=== PATIENT | male | born 1980 | race Caucasian/White ===

== ENCOUNTER 2016-11-23 20:27 | Inpatient (IN) | payer MEDICAID, OTHER ==
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
[2016-11-23] MEDS ORDERED: NICOTINE 21MG/24HR PATCH TRANSDERM STA (21:16)
[2016-11-24] MEDS ORDERED: MAGNESIUM HYDROXIDE 2,400 MG/10 ML CUP PO PRN (03:19)
[2016-11-24] MEDS ORDERED: MAG HYDROX/AL HYDROX/SIMETH 30 ML CUP PO PRN (03:19)
[2016-11-24] MEDS ORDERED: HALOPERIDOL 5 MG TAB PO STA (08:12)
[2016-11-24] MEDS ORDERED: HALOPERIDOL LACTATE 5 MG/ML 1 ML VIAL IM PRN (08:24)
[2016-11-24] MEDS ORDERED: WATER FOR INJECTION, STERILE 10 ML IV ONE ×2 (08:25→23:33)
[2016-11-24] MEDS: ZIPRASIDONE 20 MG VIAL IM PRN ×2 (08:33→23:37)
[2016-11-24] MEDS: LORazepam 1 MG TAB PO PRN ×2 (09:17→18:37)
[2016-11-24] MEDS ORDERED: HALOPERIDOL LACTATE 5 MG/ML 1 ML VIAL IM STA (09:40)
[2016-11-24] MEDS ORDERED: LORazepam 2 MG/ML SYRINGE IM STA (09:41)
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
--- NOTE | 2016-11-24 16:48 | CONS ---
DATE OF CONSULTATION: CHIEF COMPLAINT: Manic-depressive. HISTORY OF PRESENT ILLNESS: This gentleman was admitted to the psych floor and I was asked to see the patient on medical consult. However, he is not available at this time and will be assessed later.
[2016-11-24] MEDS: LORazepam 2 MG/ML SYRINGE IM PRN (23:37)
[2016-11-25] MEDS: LORazepam 1 MG TAB PO PRN ×2 (08:35→18:18)
[2016-11-25 08:44] LABS: Basophils # (A) 0.1 k/uL (0-0.2); Basophils % (A) 0 %; CH 31.1; CHCM 34.1; Eosinophils # (A) 0.4 k/uL (0-0.7); Eosinophils % (A) 4 %; HGB 16.3 gm/dL (13.0-17.5); Luc # (Auto) 0.28; Luc % (Auto) 3; Lymphocytes % (A) 18 %; MCH 30.4 pg (25.0-35.0); MCHC 33.2 g/dL (31.0-37.0); MCV 91.8 fL (80.0-100.0); Mean Platelet Volume 6.5; Monocytes # (A) 0.7 k/uL (0-1.0); Monocytes % (A) 6 %; Neutrophils % (A) 70 %; RBC 5.34 m/uL (4.30-5.90); RDW 14.4 % (11.5-15.5); WBC 11.4 k/uL (3.8-10.6); WBC (Perox) 11.32
[2016-11-25 09:07] LABS: ALT 34 U/L (21-72); AST 33 U/L (17-59); Alkaline Phosphatase 71 U/L (38-126); Anion Gap 10 mmol/L; Blood Urea Nitrogen 8 mg/dL (9-20); Calcium 9.6 mg/dL (8.4-10.2); Carbon Dioxide 25 mmol/L (22-30); Chloride 108 mmol/L (98-107); Glucose 99 mg/dL (74-99); Non-African American GFR(MDRD) >60 (>60 ml/min/1.73 sqM); Potassium 4.7 mmol/L (3.5-5.1); Sodium 143 mmol/L (137-145); Total Bilirubin 0.6 mg/dL (0.2-1.3); Total Protein 7.5 g/dL (6.3-8.2)
--- NOTE | 2016-11-25 09:48 | P.PN ---
Progress Note - Text Interval history: The patient was seen in library . He endorses mixed delusion : persecutory and somatic delusion ,disheveled ,body odor ,labile ,easy agitated PER NURSING STAFF: Patient was in restrains yesterday morning and did require multiple PRN ,please see MAR ,last Evening he took his oral Abilify but did require IM Ativan and Geodon at 2300 Mental status exam: The patient is alert ,unkept,disheveled Eye contact is intermittent. He is less agitated today. He describes feelings of persecution and paranoia. He feels that staff are doing things to him . Insight and judgment are poor. Obviously continues to experience acute symptoms of psychosis inhibiting appropriate psychosocial functioning. Plan: The patient will continue on his current medication we will monitor his compliance. Encourage him to take care of his ADLS The patient requires continued psychiatric hospitalization. Vital signs reviewed.
[2016-11-25] MEDS: ACETAMINOPHEN TAB 325 MG TAB PO PRN (10:06)
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
[2016-11-25] MEDS ORDERED: WATER FOR INJECTION, STERILE 10 ML IV ONE (12:30)
[2016-11-25] MEDS: ZIPRASIDONE 20 MG VIAL IM PRN (12:47)
[2016-11-26] MEDS: LORazepam 1 MG TAB PO PRN ×3 (08:26→22:39)
[2016-11-26] MEDS: NICOTINE 21MG/24HR PATCH TRANSDERM SCH (10:03)
[2016-11-26] MEDS ORDERED: ZIPRASIDONE 20 MG CAP PO STA (10:12)
[2016-11-26] MEDS ORDERED: ZIPRASIDONE 20 MG CAP PO PRN (12:44)
--- NOTE | 2016-11-26 12:51 | P.PN ---
Progress Note - Text Interval history: The patient was seen in library . He endorses mixed delusion : persecutory and somatic delusion ,disheveled ,unkept ,less irritable than yesterday ,he reports trouble falling asleep and asked if can use PRN oral Geodon PER NURSING STAFF: He did require PRN ATIVAN last night as he was pacing and irritable Mental status exam: The patient is alert ,unkept,disheveled Eye contact is intermittent. He is less agitated today. He describes feelings of persecution and paranoia. He feels that staff are doing things to him . Insight and judgment are poor. Obviously continues to experience acute symptoms of psychosis inhibiting appropriate psychosocial functioning. Plan: Increase Abilify to 30 mg daily ,we will consider Abilify Maintaina after court as he has extensive history of poor compliance, we will monitor his compliance. Encourage him to take care of his ADLS The patient requires continued psychiatric hospitalization. Vital signs reviewed.
[2016-11-26] MEDS: ACETAMINOPHEN TAB 325 MG TAB PO PRN (13:47)
[2016-11-26] MEDS: ARIPiprazole 15 MG TAB PO SCH (20:19)
[2016-11-27] MEDS: NICOTINE 21MG/24HR PATCH TRANSDERM SCH (08:35)
[2016-11-27] MEDS: LORazepam 1 MG TAB PO PRN ×3 (08:36→22:42)
--- NOTE | 2016-11-27 10:41 | P.PN ---
Progress Note - Text Interval history: The patient was seen in the office ,less paranoia ,still evasive ,guarded ,disorganized speech ,stated that his mother visited him on weekend and patient asked her if he can live with her after discharge "She told me that she has to check with her boyfriend ,I do not like staying in half-way ",,patient endorses persecutory delusion , guilt feeling "I WAS DISRESPECTFUL TO MY GRANDMOTHER",reluctant to elaborate more about this PER NURSING STAFF: No PRN Geodon for last 24 hours ,received PRN Ativan last night for anxiety,not participating in any group Mental status exam: The patient is alert ,unkept,disheveled Eye contact is intermittent. He is less agitated today. He describes feelings of persecution and paranoia. ,flat affect ,halting and blocking ,denies any hallucination but seems responding to internal stimuli,denies any current suicidal or homicidal ideation,. Insight and judgment are poor. Obviously continues to experience acute symptoms of psychosis inhibiting appropriate psychosocial functioning. Plan: Abilify to 30 mg daily ,we will consider Abilify Maintaina after court as he has history of poor compliance, we will monitor his compliance. Encourage him to take care of his ADLS and to participate in groups The patient requires continued psychiatric hospitalization. Vital signs reviewed.
[2016-11-27] MEDS: ACETAMINOPHEN TAB 325 MG TAB PO PRN ×2 (11:51→17:57)
[2016-11-27] MEDS: ARIPiprazole 15 MG TAB PO SCH (20:18)
[2016-11-28] MEDS: ACETAMINOPHEN TAB 325 MG TAB PO PRN ×3 (00:28→16:17)
[2016-11-28] MEDS: NICOTINE 21MG/24HR PATCH TRANSDERM SCH (08:28)
[2016-11-28] MEDS: LORazepam 1 MG TAB PO PRN (08:32)
[2016-11-28] MEDS: hydrOXYzine PAMOATE 25 MG CAP PO PRN ×3 (12:31→21:56)
--- NOTE | 2016-11-28 13:00 | P.PN ---
Progress Note - Text Interval history: The patient was seen this morning and later on after he met with his admitted attorneys :patient is confused ,having difficulty to comprehend court process ,reports poor sleep , having high anxiety "CAN YOU CHANGE MY ATIVAN TO EVERY 4 HOURS INSTEAD OF 8 ",denies any hallucination but still having persecutory delusion saying "ARE YOU TRYING TO SEND ME TO CARE HOME ,I DID LOT OF MISTAKES" Patient stated that his mother will allow him to stay with her if he will accept that she will be his guardian PER NURSING STAFF: Has been requesting Ativan 2-3 times daily for anxiety ,no participation in milieu or therapeutic groups Mental status exam: The patient is alert ,unkept,disheveled ,body odor Eye contact is intermittent. He is less agitated today. He describes feelings of persecution and paranoia. He feels that I am trying to send him to assisted ,very concrete and not able to comprehend . Insight and judgment are poor. Obviously continues to experience acute symptoms of psychosis inhibiting appropriate psychosocial functioning. Plan: Patient met with admitted attorneys and signed deferral ,we will start Abilify Maintaina ,decrease oral Abilify to 20 mg ,discontinue Ativan ,start Viataril for anxiety ,Remeron for sleep ,SW to meet with patient mother Encourage him to take care of his ADLS The patient requires continued psychiatric hospitalization. Vital signs reviewed.
[2016-11-28] MEDS ORDERED: ARIPiprazole 400 MG VIAL IM ONE (13:01)
[2016-11-28 13:33] LABS: Appearance,Urine Clear (Clear); Bilirubin,Urine Negative (Negative); Glucose,Urine (UA) Negative (Negative); Ketones,Urine Negative (Negative); Leukocyte Esterase,Urine Negative (Negative); Nitrite,Urine Negative (Negative); Protein,Urine Trace (Negative); Specific Gravity,Urine 1.002 (1.001-1.035); UA Billing (MACRO vs. MICRO) CHEM; Urobilinogen,Urine <2.0 mg/dL (<2.0)
[2016-11-28 14:08] LABS: Basophils # (A) 0.1 k/uL (0-0.2); Basophils % (A) 1 %; CH 31.2; CHCM 33.4; Eosinophils # (A) 0.2 k/uL (0-0.7); Eosinophils % (A) 1 %; HCT 49.5 % (39.0-53.0); HDW 2.27; HGB 16.3 gm/dL (13.0-17.5); Luc # (Auto) 0.21; Luc % (Auto) 2; Lymphocytes # (A) 1.2 k/uL (1.0-4.8); Lymphocytes % (A) 10 %; MCH 30.9 pg (25.0-35.0); MCV 93.8 fL (80.0-100.0); Mean Platelet Volume 6.9; Monocytes # (A) 0.6 k/uL (0-1.0); Monocytes % (A) 5 %; Neutrophils # (A) 9.8 k/uL (1.3-7.7); Neutrophils % (A) 81 %; RBC 5.28 m/uL (4.30-5.90); RDW 14.1 % (11.5-15.5); WBC 12.1 k/uL (3.8-10.6); WBC (Perox) 11.63
[2016-11-28 14:29] LABS: Potassium 5.1 mmol/L (3.5-5.1)
[2016-11-28] MEDS ORDERED: MIRTAZAPINE 15 MG TAB PO SCH (21:00)
[2016-11-28] MEDS ORDERED: ARIPiprazole 15 MG TAB PO SCH (21:00)
[2016-11-28] MEDS ORDERED: WATER FOR INJECTION, STERILE 10 ML IV ONE (22:00)
[2016-11-28] MEDS: LORazepam 2 MG/ML SYRINGE IM PRN (22:16)
[2016-11-28] MEDS: ZIPRASIDONE 20 MG VIAL IM PRN (22:17)
[2016-11-29] MEDS: hydrOXYzine PAMOATE 25 MG CAP PO PRN ×3 (10:12→20:58)
[2016-11-29] MEDS: NICOTINE 21MG/24HR PATCH TRANSDERM SCH (10:13)
[2016-11-29] MEDS: ACETAMINOPHEN TAB 325 MG TAB PO PRN (12:57)
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
[2016-11-29] MEDS: traZODone HCL 50 MG TAB PO SCH (20:58)
[2016-11-29] MEDS ORDERED: traZODone HCL 100 MG TAB PO SCH (21:00)
[2016-11-29] MEDS ORDERED: WATER FOR INJECTION, STERILE 10 ML IV ONE (22:57)
[2016-11-29] MEDS: ZIPRASIDONE 20 MG VIAL IM PRN (22:57)
[2016-11-29] MEDS: LORazepam 2 MG/ML SYRINGE IM PRN (22:58)
[2016-11-30] MEDS: NICOTINE 21MG/24HR PATCH TRANSDERM SCH (08:23)
[2016-11-30] MEDS: ARIPiprazole 15 MG TAB PO SCH (08:23)
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
[2016-11-30] MEDS ORDERED: ARIPiprazole 15 MG TAB PO SCH (09:00)
[2016-11-30] MEDS: hydrOXYzine PAMOATE 25 MG CAP PO PRN (09:13)
[2016-11-30] MEDS ORDERED: ZIPRASIDONE 20 MG VIAL IM ONE (11:03)
[2016-11-30] MEDS ORDERED: WATER FOR INJECTION, STERILE 10 ML IV ONE (11:03)
[2016-11-30] MEDS: LORazepam 2 MG/ML SYRINGE IM PRN (11:05)
[2016-11-30] MEDS: ZIPRASIDONE 20 MG VIAL IM PRN (11:05)
[2016-11-30] MEDS: clonazePAM 0.5 MG TAB PO SCH ×2 (15:49→20:09)
[2016-11-30] MEDS ORDERED: INFLUENZA VACCINE (3YR+) 60 MCG/0.5 ML SYRINGE IM ONE (17:38)
[2016-11-30] MEDS: traZODone HCL 50 MG TAB PO SCH (20:10)
--- NOTE | 2016-11-30 21:42 | PN ---
DATE OF SERVICE: 11/30/2016 CHIEF COMPLAINT: "Elevated white count, platelet count and kidney function" HISTORY OF PRESENT ILLNESS: This gentleman is being seen because it was reported that his platelet count and white cell counts were abnormal. He has no signs or symptoms to suggest any fever, chills, bleeding disorders, etc. He has not been on any medications that would affect his bone marrow such as steroids. In May of 2016 his white count was 12,600 and it is 12,000 now. He has one on the floor that is 11,400. Platelets are 495,000, which is perfectly normal. He has another platelet count of 470,000. He has no fever, chills, rashes, ecchymoses, temperature, etc. These numbers are well within expected normal limits and are unchanged from studies that he had done last year.
[2016-12-01] MEDS: NICOTINE 21MG/24HR PATCH TRANSDERM SCH (08:29)
[2016-12-01] MEDS: ARIPiprazole 15 MG TAB PO SCH (08:29)
[2016-12-01] MEDS: clonazePAM 0.5 MG TAB PO SCH (08:29)
--- NOTE | 2016-12-01 12:17 | P.PN ---
Progress Note - Text Interval history: I reviewed records and I saw patient :patient reports feeling lost ,indecisive ,lot of guilt feeling ,fear of being burden when his mother "She is on lot of medications ",confused ,seems preoccupied ,lot of rumination on his past SA "I do think that I need to go to Rehab. ,"patient could not elaborate about this ,endorses persistent thoughts about "Growing Mushrooms at age 28 "that cause marked anxiety and distress,concrete thinking PER NURSING STAFF: Slept with Trazodone ,last PRN IM was yesterday noon ,minimal participation in groups ,difficulty to comprehend at times ,no aggressive behavior Mental status exam: The patient is alert ,ADLs slightly better Eye contact is intermittent. He is calm and cooperative,. He describes feelings of persecution and paranoia. He reports depressive symptoms:feeling overwhelmed , guilt feeling ,worthless feeling ,very concrete and not able to comprehend .He denies any suicidal or homicidal ideation,denies any hallucination,denies any side-effects from psychotropic medication Insight and judgment are poor. Obviously continues to experience acute symptoms of psychosis inhibiting appropriate psychosocial functioning. Plan: 1) Patient received ABILIFY MAINTAINA on 11/28 ,continue oral Abilify 30 mg for 2 weeks 2) Add low dose of citalopram for his anxiety and depression 3) Change regular Klonopin to PRN as patient looks sedated 4) Continue Trazodone for sleep ,continue monitoring his thought process
[2016-12-01] MEDS: hydrOXYzine PAMOATE 25 MG CAP PO PRN (13:27)
[2016-12-01] MEDS: clonazePAM 0.5 MG TAB PO PRN ×2 (14:23→21:17)
[2016-12-01] MEDS: ACETAMINOPHEN TAB 325 MG TAB PO PRN (15:53)
[2016-12-01] MEDS: traZODone HCL 100 MG TAB PO SCH (21:15)
[2016-12-02] MEDS: ARIPiprazole 15 MG TAB PO SCH (08:12)
[2016-12-02] MEDS: NICOTINE 21MG/24HR PATCH TRANSDERM SCH (08:12)
[2016-12-02] MEDS: CITALOPRAM HYDROBROMIDE 20 MG TAB PO SCH (08:13)
[2016-12-02] MEDS: clonazePAM 0.5 MG TAB PO PRN ×2 (08:14→16:20)
[2016-12-02] MEDS: ACETAMINOPHEN TAB 325 MG TAB PO PRN (11:16)
[2016-12-02] MEDS: hydrOXYzine PAMOATE 25 MG CAP PO PRN (13:42)
--- NOTE | 2016-12-02 16:59 | P.PN ---
Progress Note - Text SUBJECTIVE: I reviewed the medical record and interviewed Mr. Cedeno. He is a 36-year-old male with history of a schizophrenia. He complained of feeling guilty, worthless and helpless. He perseverated on themes of worthlessness; at one point calling himself "a piece of shit." He feels that he is destroyed his life from "doing drugs" alleging that he began smoking marijuana in the sixth grade. He gave an ambivalent response to questions about the benefits of her current psychotropic medications. At one point stating that "medications are of no help" and later stating that he came to Hospital because he stopped taking medication 6 months ago. He denied side effects to current medications. OBJECTIVE: He presented as a disheveled appearing 36-year-old male who was pleasant on approach. He insisted that we keep the door to the examination room open and would not begin the interview until I propped the door open with a chair. He maintained eye contact and appeared to attend to the interview. He had no distinguishing features or prominent physical abnormalities. He had a flat facial expression. He was alert and oriented to person, place and time. He showed marked psychomotor retardation but no abnormal involuntary movements. His speech was spontaneous with decreased rate , rhythm and volume. His affect was flat and he was guarded and suspicious. He denied suicidal ideation or wishes. He denied homicidal ideation. He expressed depressive cognitions such as helplessness, hopelessness and worthlessness. He ruminated on themes of worthlessness and helplessness. He did not express ideas reference or clear organize paranoid delusional thinking. His thinking was concrete and associations were not coherent or logical. He did not demonstrate blocking. He denied thought insertion, thought broadcasting or thought control. He denied hallucinations did not appear to be responding to internal stimuli. ASSESSMENT: He is severely mentally ill and is shown a modest response to treatment. He is denying side effects to current psychotropic medications. PLAN: Continue Abilify 30 mg daily, trazodone 200 mg at bedtime and Celexa 20 mg daily. Continue clonazepam 0.5 mg by mouth 3 times a day when necessary for anxiety as well as Vistaril 25 mg by mouth every 4 hours for anxiety. Encourage participation in therapeutic groups and activities. Review clinical status and response to treatment on a daily basis.
[2016-12-02] MEDS: traZODone HCL 100 MG TAB PO SCH (20:16)
[2016-12-03] MEDS: clonazePAM 0.5 MG TAB PO PRN ×2 (08:27→15:03)
[2016-12-03] MEDS: ARIPiprazole 15 MG TAB PO SCH (08:27)
[2016-12-03] MEDS: NICOTINE 21MG/24HR PATCH TRANSDERM SCH (08:27)
[2016-12-03] MEDS: CITALOPRAM HYDROBROMIDE 20 MG TAB PO SCH (08:28)
--- NOTE | 2016-12-03 15:53 | P.PN ---
Progress Note - Text SUBJECTIVE: I reviewed the medical record and interviewed Mr. Cedeno. He described an unusual fixed belief. In response to my question about how he is currently feeling he replied "I have messed up the world and I can't make it better. I ate mushrooma . I was using drugs. I had learned thru the games that I am contagious. I didn't know the whole time otherwise I wouldn't have tried it. ... I cannot go back I can be a better person every moment. In response to my question about what he may do to ease his distress, he replied " I like to color white but I know that's not an option." He denied side effects to current medications. OBJECTIVE: He presented as a disheveled appearing 36-year-old male who was pleasant on approach. He insisted that we keep the door to the examination room open and would not begin the interview until I propped the door open with a chair. He maintained eye contact and appeared to attend to the interview. He had no distinguishing features or prominent physical abnormalities. He had a flat facial expression. He was alert and oriented to person, place and time. He showed marked psychomotor retardation but no abnormal involuntary movements. His speech was spontaneous with decreased rate , rhythm and volume. His affect was flat. He was guarded and suspicious. He repeatedly denied suicidal ideation or wishes. He denied homicidal ideation. He expressed depressive cognitions such as helplessness, hopelessness and worthlessness. He ruminated on themes of worthlessness and helplessness. He described a paranoid, grandiose and disjointed delusional belief. His thinking was concrete and associations were not coherent or logical. He did not demonstrate blocking. He denied thought insertion, thought broadcasting or thought control. He denied hallucinations did not appear to be responding to internal stimuli. ASSESSMENT: He is severely mentally ill and is shown a modest response to treatment. He is denying side effects to current psychotropic medications. PLAN: Continue Abilify 30 mg daily, trazodone 200 mg at bedtime and Celexa 20 mg daily. Continue clonazepam 0.5 mg by mouth 3 times a day when necessary for anxiety as well as Vistaril 25 mg by mouth every 4 hours for anxiety. Encourage participation in therapeutic groups and activities. Review clinical status and response to treatment on a daily basis.
[2016-12-03] MEDS: traZODone HCL 100 MG TAB PO SCH (21:15)
[2016-12-03] MEDS: hydrOXYzine PAMOATE 25 MG CAP PO PRN (23:10)
[2016-12-04] MEDS: ACETAMINOPHEN TAB 325 MG TAB PO PRN (04:54)
[2016-12-04] MEDS: clonazePAM 0.5 MG TAB PO PRN (04:58)
[2016-12-04] MEDS: ARIPiprazole 15 MG TAB PO SCH (08:11)
[2016-12-04] MEDS: NICOTINE 21MG/24HR PATCH TRANSDERM SCH (08:11)
[2016-12-04] MEDS: CITALOPRAM HYDROBROMIDE 20 MG TAB PO SCH (08:12)
[2016-12-04] MEDS: hydrOXYzine PAMOATE 25 MG CAP PO PRN ×2 (08:12→20:15)
[2016-12-04] MEDS: GABAPENTIN 100 MG CAP PO SCH ×3 (08:40→20:13)
--- NOTE | 2016-12-04 08:47 | P.PN ---
Progress Note - Text SUBJECTIVE: He complained of feeling guilty, worthless and helpless. He perseverated on themes of worthlessness and his extensive history of drugs use;reports that he is up since 5 AM "Because they came to my room to check on me ",reports lot of paranoia and suspicious feeling ,denies any hallucination but seems having difficulty to focus or to comprehend ,asked if "CAN YOU CHANGE KLONOPIN TO XANAX ,IT WORKED FOR ME" PER NURSING STAFF: Patient had PRN Vistaril and Klonopin at 5 AM ,no aggressive behavior OBJECTIVE: Patient came to my office asked to talk to me ,hygiene is better ,no body odor He maintained eye contact and appeared to attend to the interview. . He showed marked psychomotor retardation but no abnormal involuntary movements. His speech was spontaneous with decreased rate, rhythm and volume. His affect was flat and he was guarded and suspicious. He denied suicidal ideation or wishes. He denied homicidal ideation. He expressed depressive cognitions such as helplessness, hopelessness and worthlessness. He ruminated on themes of worthlessness and helplessness. He did not express clear organize paranoid delusional thinking. His thinking was concrete and associations were not coherent or logical. Patient is having difficulty to express his feeling and his thoughts ASSESSMENT: Patient is still paranoia ,concrete ,reports high anxiety and depressive symptoms ,asking for benzodiazepine ,limited insight PLAN: 1) Discontinue Klonopin ,continue Vistaril PRN ,add Neurontin for anxiety 2) Increase Celexa 30 mg ,add low dose of Prolixin to eliminate paranoia 3) Continue Abilify and Trazodone ,same dose 4). Encourage participation in therapeutic groups and activities. Review clinical status and response to treatment on a daily basis.
[2016-12-04] MEDS ORDERED: CITALOPRAM HYDROBROMIDE 10 MG TAB PO SCH (09:00)
[2016-12-04] MEDS: traZODone HCL 100 MG TAB PO SCH (20:13)
[2016-12-05] MEDS: NICOTINE 21MG/24HR PATCH TRANSDERM SCH (08:53)
[2016-12-05] MEDS: GABAPENTIN 100 MG CAP PO SCH ×3 (08:53→21:03)
[2016-12-05] MEDS: CITALOPRAM HYDROBROMIDE 10 MG TAB PO SCH (08:53)
[2016-12-05] MEDS: ARIPiprazole 15 MG TAB PO SCH (08:54)
--- NOTE | 2016-12-05 09:52 | P.PN ---
Progress Note - Text SUBJECTIVE:Met with patient and [facility] liaison: Patient talked about postplan discharge and living with his mother who DX with Bipolar and Schizophrenia in addition she has been on Opium and Valium for chronic pain ,patient stated that he will be compliant with ACT team and follow up with our recommendation ,stated that his future goal is to live in his own apartment and stay clean from any habit forming medications Patient is still ruminating about his past mistakes and his poor compliance with treatment Patient denies side-effects to his current medications OBJECTIVE: Patient was dressed in his clothing ,unkept ,hair is not combed ,poor grooming He maintained eye contact and appeared to attend to the interview. . He showed marked psychomotor retardation but no abnormal involuntary movements. His speech was spontaneous with decreased rate, rhythm and volume. His affect was flat . He denied suicidal ideation or wishes. He denied homicidal ideation. He expressed depressive cognitions such as worthlessness and guilt feeling. He did not express clear organize paranoid delusional thinking. His thinking was concrete and associations were not coherent or logical. PLAN: Continue current medications ,discussed referral to ACT team ,encourage groups participation ,most likely discharge tomorrow
[2016-12-05 11:17] VITALS: BMI 24.7
[2016-12-05] MEDS: traZODone HCL 100 MG TAB PO SCH (21:03)
[2016-12-06 07:04] VITALS: BP 155/74; PULSE 116; RESP 18; TEMP 98.2
[2016-12-06] MEDS: NICOTINE 21MG/24HR PATCH TRANSDERM SCH (08:54)
[2016-12-06] MEDS: CITALOPRAM HYDROBROMIDE 10 MG TAB PO SCH (08:55)
[2016-12-06] MEDS: GABAPENTIN 100 MG CAP PO SCH (08:55)
[2016-12-06] MEDS: ARIPiprazole 15 MG TAB PO SCH (08:55)
--- NOTE | 2016-12-06 09:48 | DS ---
DATE OF ADMISSION: 11/24/2016 DATE OF DISCHARGE: 12/06/2016 CONSULT PHYSICIAN: Yary. CONSULTING PROVIDER: Martin Gotti Consult reason for medical management. DISCHARGE DIAGNOSES: 1. Schizoaffective disorder, depressed episode. 2. Schizophrenia, disorganized type. 3. Polysubstance abuse and dependence, opium, benzodiazepine and cannabis. 4. History of hallucinogenic use, in remission. 5. 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 6. Extensive history of poor compliance with medication. Brief summary of the admission notes: The patient was admitted to the mental health unit from the emergency room on involuntary basis for delusion and psychosis. At the time of the admission, patient was severely agitated, very bizarre, delusional. He was refusing to talk to me and he got agitated to the point that he started hitting his head against the wall and he did require seclusion and restraint in addition to p.r.n. For complete history and physical exam, please refer to my dictation on November 24. Summary of the hospital course: Patient was originally admitted to the mental health unit on petition and clinical certificate. Patient was very resistant to most of psychotropic medication. We did pursue involuntary admission. Patient was complaining that he is allergic to most of antipsychotic medication, but he did agree to start Abilify and according to him, he did try to Risperdal, Seroquel, Thorazine, and they were not effective. Patient met with his personal injury attorney and he did defer and I switched him from oral Abilify to Abilify maintain and I continued the oral Abilify. Patient was requesting multiple p.r.n. between Geodon and Ativan and based on his extensive history of substance abuse, I discontinued the Ativan and he was given Vistaril p.r.n. for anxiety. Patient was ruminating a lot about growing mushroom in his grandmom backyard and I did add SSRI escitalopram. Patient was asking me to have some Xanax as he said, "I'm having very anxiety." He did agree to take Neurontin for anxiety and also to control his mood, especially he has tendency to be very restless. Throughout his hospitalization he was describing unusual fixed beliefs and ruminating about, "I have messed up the world and I cannot make it better. I was using drugs and I ate mushrooms and I had learned that I am contagious." Due to this delusion related to his depression, I did add low dose of Prolixin as he was already on Abilify 30 mg in the morning and he did receive the injection November 29 four hundred mg IM. I did encourage him to participate in therapeutic group and activity; for the last 5 days he was able to attend and participate in group but his answer usually is very disorganized, his thinking is very concrete. At times his association were not coherent or logical. [employer] met with patient's mother and mother's boyfriend to discuss postdischarge plans and they did agree to let the patient live with them; however, it seems that the mother has multiple medical problems between bipolar disorder, schizophrenia and chronic back pain and she has been on multiple medication, especially opium medication and Valium and we did discuss with them that she needs to keep all her medication in a safe place as the patient has extensive history of substance abuse. Family did feel comfortable regarding patient discharge. I had meeting prior to the discharge with the consultation liaison from [facility] and the patient we did discuss to refer the patient to ACT team to monitor the patient regarding his compliance with medication and help him to stay sober and clean from any drug use. The mental status examination at the time of the discharge: Patient presented as disheveled, 36-year-old main who was pleasant on approach. He maintained good eye contact and he appeared to attend to the interview. There is no abnormal movement. His affect is flat, stated mood anxious, he was alert, oriented to the person, place and time. There is psychomotor retardation. His speech was spontaneous with decreased rate and volume. He has still paranoia, but much better than 2 weeks ago. He denied any hallucination and he did not appear to be responding to internal stimuli. He denied any suicidal ideation or wish. He denied any homicidal ideation. He did express some depressive symptoms, especially a lot of guilt feelings about his drug use, but he denied hopeless or helpless feeling. He is still delusional beliefs that he is contagious or by growing mushroom 8 years ago it did affect a lot of people. His thinking is very concrete. His insight and judgment are slightly improving. There is no verbal or physical aggression observed the first 2 or 3 days of his admission. PLAN: 1. Patient will be discharged from the mental health unit today to return home. 2. Patient will follow up at [facility]. 3. Patient was instructed to abstain completely from any drug use, especially opium and benzodiazepine use. 4. I do recommend patient to be tested for his IQ in the outpatient setting . 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 Patient was given prescription for the following medication: 1. Abilify Maintena 400 mg is due on December 29. 2. Abilify 30 mg in the morning for the next 10 days. 3. Celexa 30 mg in the morning for depression and anxiety. 4. Neurontin 200 mg 3 times a day for anxiety and as mood stabilizer. 5. Trazodone 200 mg at bedtime for sleep. 6. Prolixin 2 mg at bedtime. 7. Also, he was given 2-week supply of nicotine patch for smoking cessation. The patient denied any hopeless feeling, denied any suicidal ideation. There is no eminent safety risk. Patient needs to seek outpatient counseling for substance abuse and mental health issue. Patient condition at the time of the discharge, stable.
== END 2016-12-06 12:16 | disposition home or self-care (01) | DRG 885 ==
LOC: EC 20:27 → 3MHU 11-24 00:13
PROVIDERS: ADMIT Psychiatry & Neurology Psychiatry; ATTEND Psychiatry & Neurology Psychiatry
PROC: 3E0234Z Introduction of Serum, Toxoid and Vaccine into Muscle, Percutaneous Approach (ICD-10-PCS; principal; 2016-11-30)
DX: F20.1 Disorganized schizophrenia (principal); Z78.1 Physical restraint status; E55.9 Vitamin D deficiency, unspecified; F19.20 Other psychoactive substance dependence, uncomplicated; F20.0 Paranoid schizophrenia; F10.21 Alcohol dependence, in remission; F43.10 Post-traumatic stress disorder, unspecified; F17.210 Nicotine dependence, cigarettes, uncomplicated; D72.829 Elevated white blood cell count, unspecified; T43.596A Underdosing of other antipsychotics and neuroleptics, initial encounter; G89.29 Other chronic pain; F16.21 Hallucinogen dependence, in remission; F41.9 Anxiety disorder, unspecified; M54.9 Dorsalgia, unspecified; K64.9 Unspecified hemorrhoids; G43.909 Migraine, unspecified, not intractable, without status migrainosus; Z73.6 Limitation of activities due to disability; Z87.81 Personal history of (healed) traumatic fracture; Z91.14 Patient's other noncompliance with medication regimen; Z23 Encounter for immunization; Z71.51 Drug abuse counseling and surveillance of drug abuser; Z91.19 Patient's noncompliance with other medical treatment and regimen; Z87.828 Personal history of other (healed) physical injury and trauma; Z59.0 Homelessness; Z81.8 Family history of other mental and behavioral disorders; Z62.810 Personal history of physical and sexual abuse in childhood
CPT/HCPCS: 80051; 80053; 80306; 81003; 82075; 84443; 85025; 90686; 99285